=== PATIENT | male | born 1960 | race Caucasian/White ===

== ENCOUNTER 2016-10-20 20:20 | Emergency (ER) | payer OTHER ==
[~2016-10-20] VITALS: Ht 177.8 cm; Wt 95.3 kg
[~2016-10-20 20:20] MED LIST: AMOXIL 875 MG875 MG PO; AMOXIL500 MG PO; ANUSOL HC-HEMOR1 SUP RC; CLARITIN-D 24 H1 T24 PO; IBUPROFEN800 M1 PO; PERCOCET 325 MG1 TA2 PO; PREDNISONE 20MG20 MG PO; ROBITUSSIN AC SY5 ML PO; TESSALON PERLE100 MG PO; ZITHROMAX Z-PA250 M1 PO
--- NOTE | 2016-10-20 21:25 | ED DYSPNEA/ASTHMA COMPLAINT ---
History of Present Illness General Chief Complaint: Dyspnea (COPD, CHF, Other) Stated Complaint: DIFF BREATHING PER PT Source: patient Exam Limitations: no limitations Vital Signs & Intake/Output Vital Signs & Intake/Output Vital Signs Date Time Temp Pulse Resp B/P Pulse O2 O2 Flow FiO2 Ox Delivery Rate 10/20 2246 97.5 80 18 115/64 96 Room Air Room Air 10/20 2150 96 10/21 2023 97.8 87 20 110/62 95 Room Air ED Intake and Output 10/21 0000 10/20 1200 Intake Total Output Total Balance Patient 210 lb Weight Allergies Coded Allergies: morphine (Severe, HIVES 03/14/16) Reconcile Medications Albuterol Sulfate (Ventolin Hfa) 90 MCG HFA.AER.AD 2 PUF INH Q4-6 PRN PRN WHEEZING Albuterol Sulfate 1.25 MG/3 ML VIAL.NEB 1 Vial INH/HUSSAIN Q4-6 PRN WHEEZING Azithromycin (Zithromax) 500 MG TABLET 1 TAB PO DAILY BRONCHITIS Benzonatate (Tessalon Perle) 100 MG CAPSULE 1 CAP PO TID PRN COUGH Canagliflozin (Invokana) 100 MG TABLET 1 TAB PO DAILY DM (Reported) Ezetimibe (Zetia) 10 MG TABLET 1 TAB PO DAILY CHOLESTEROL (Reported) Lisinopril 20 MG TABLET 1 TAB PO DAILY BP (Reported) Metformin HCl 500 MG TABLET 1 TAB PO BID DM (Reported) Multivitamin (Multi-Day Vitamins) 1 EACH TABLET 1 TAB PO DAILY SUPPLEMENT ( Reported) Pravastatin Sodium 80 MG TABLET 1 TAB PO DAILY CHOLESTEROL (Reported) Prednisone 10 MG TABLET 1 TAB PO AD INFLAMMATION DAY1/DAY2 FOUR TABS DAY3/DAY4 THREE TABS DAY5/DAY6 TWO TABS DAY 7 ONE TAB Sitagliptin Phosphate (Januvia) 100 MG TABLET 1 TAB PO DAILY DM (Reported) Tadalafil (Cialis) 20 MG TABLET 1 TAB PO AD PRN ED (Reported) Triage Note: INCREASING SOB 2-3 DAYS COUGH CONGESTION REPORTS HX OF RECURRENT BRONCHITIS AND PNE Triage Nurses Notes Reviewed? yes Onset: Gradual Duration: getting worse Timing: recent history Severity: moderate HPI: Patient is a 56-year-old male with a past medical history of CAD with bypass, hypertension and diabetes in which he is an every day smoker who states that for the past 4-5 days he's been complaining of gradual onset of wheezing shortness of breath productive yellow cough nasal congestion and not feeling well. Positive sick contacts at home. Patient has been using his inhaler nebulizer treatment and rescue inhaler with mild relief of symptoms. Denies any chest pain hemoptysis leg swelling arm pain jaw pain (CUONG KWON) Past History Travel History Traveled to [place] past 21 day No Medical History Any Pertinent Medical History? 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 No (CUONG KWON) Review of Systems Review of Systems Constitutional: Reports: see HPI. EENTM: Reports: see HPI, nasal congestion. Respiratory: Reports: see HPI, cough, short of breath, wheezing. Cardiovascular: Reports: no symptoms. GI: Reports: no symptoms. Genitourinary: Reports: no symptoms. Musculoskeletal: Reports: no symptoms. Skin: Reports: no symptoms. Neurological/Psychological: Reports: no symptoms. Hematologic/Endocrine: Reports: no symptoms. Immunologic/Allergic: Reports: no symptoms. All Other Systems: Reviewed and Negative (CUONG KWON) Physical Exam Physical Exam General Appearance: no apparent distress, alert Respiratory: no respiratory distress, wheezing Comments: Well-developed well-nourished person in no acute distress HEENT: Normal EENT exam, extraocular motion intact, no nystagmus. Pupils equally round and reactive to light and accommodation. Nose is atraumatic. External auditory canal and Tympanic membranes clear. Pharynx normal. No swelling or edema. nasal congestion. Neck: Supple, no lymphadenopathy, normal range of motion without pain or tenderness Back: Nontender, no CVA tenderness. Cardiovascular: Regular rate and rhythms no murmurs rubs or gallops, normal JVP Respiratory: Chest nontender. No respiratory distress, bilateral posterior auscultation of wheezing noted Abdomen: Soft, nontender nondistended, no appreciable organomegaly. Normal bowel sounds. No ascites Extremity: No edema, no calf tenderness to palpation, normal and equal pulses. Neuro: Alert oriented x3, motor sensory normal, Skin: No appreciable rash on exposed skin, skin is warm and dry. Psych: Mood and affect is normal, memory and judgment is normal. Core Measures ACS in differential dx? Yes Severe Sepsis Present: No Septic Shock Present: No (CUONG KWON) Progress Differential Diagnosis: asthma, AMI, bronchitis, costochondritis, CHF, COPD, musculoskeletal pain, pericarditis, pulmonary embolism, pneumonia, pneumothorax, rib fracture, unstable angina Plan of Care: Orders Procedure Date/time Status XRY-CHEST XRAY, PA AND LATERAL 10/20 2130 Active Patient currently is in no respiratory distress 10/20/2016 10:39:26 PM patient had significant resolution of wheezing noted on exam after nebulizer. 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 Patient had 97% room air oxygenation on discharge (CUONG KWON) Initial ED EKG: none (CUONG KWON) Departure Departure Disposition: HOME OR SELF CARE Condition: Stable Clinical Impression Primary Impression: Bronchitis Secondary Impressions: COPD (chronic obstructive pulmonary disease) Referrals: TRISHA ALSTON,MARY Beyer (PCP/Family) Additional Instructions: As discussed if no better in 3 days follow-up with your primary care doctor. Please discontinue smoking. Begin the prescription of albuterol inhaler and albuterol vials for your nebulizer for future wheezing. Begin the prescription Tessalon Perles for cough, azithromycin for the full course and prednisone tomorrow as YOU HAVE received prednisone in the emergency today. If symptoms worsen return to emergency room. Prescription is awaiting at [facility] Departure Forms: Customer Survey General Discharge Information Prescriptions: Current Visit Scripts Albuterol Sulfate (Ventolin Hfa) 2 PUF INH Q4-6 PRN PRN WHEEZING #1 INHAL Albuterol Sulfate 1 Vial INH/HUSSAIN Q4-6 PRN WHEEZING #150 ML Prednisone 1 TAB PO AD #19 TAB DAY1/DAY2 FOUR TABS DAY3/DAY4 THREE TABS DAY5/DAY6 TWO TABS DAY 7 ONE TAB Benzonatate (Tessalon Perle) 1 CAP PO TID PRN COUGH #21 CAP Azithromycin (Zithromax) 1 TAB PO DAILY #5 TAB (CUONG KWON) PA/SURGICAL SCRUB TECHNICIAN Co-Sign Statement Statement: ED Attending supervision documentation- [] I saw and evaluated the patient. I have also reviewed all the pertinent lab results and diagnostic results. I agree with the findings and the plan of care as documented in the PA's/SURGICAL SCRUB TECHNICIAN's documentation. [X] I have reviewed the ED Record and agree with the PA's/SURGICAL SCRUB TECHNICIAN's documentation. [] Additions or exceptions (if any) to the PAs/SURGICAL SCRUB TECHNICIAN's note and plan are summarized below: [] (RADHA ALSTON,PADMINI) Critical Care Note Critical Care Note Critical Care Time: non-applicable (CUONG KWON)
[2016-10-20] MEDS ORDERED: LISINOPRIL20 M1 PO (22:20)
[2016-10-20] MEDS ORDERED: METFORMIN HCL500 M3 PO (22:20)
[2016-10-20] MEDS ORDERED: INVOKANA100 M1 PO (22:20)
[2016-10-20] MEDS ORDERED: PRAVASTATIN SOD80 M2 PO (22:21)
[2016-10-20] MEDS ORDERED: ZETIA10 M1 PO (22:21)
[2016-10-20] MEDS ORDERED: CIALIS20 M1 PO (22:21)
[2016-10-20] MEDS ORDERED: JANUVIA100 M1 PO (22:21)
[2016-10-20] MEDS ORDERED: MULTI-DAY VITA1 EACH PO (22:22)
[2016-10-20] MEDS ORDERED: VENTOLIN HFA18 GM INH (22:33)
[2016-10-20] MEDS ORDERED: ALBUTEROL1.25 MG/1 INH/SOL (22:33)
[2016-10-20] MEDS ORDERED: ZITHROMAX500 M2 PO (22:33)
[2016-10-20] MEDS ORDERED: PREDNISONE10 M2 PO (22:33)
[2016-10-20] MEDS ORDERED: TESSALON PERLE100 M1 PO (22:33)
[2016-10-20 22:46] VITALS: BP 115/64
== END 2016-10-20 22:47 ==
LOC: ERH 20:20
DX: J44.9 Chronic obstructive pulmonary disease, unspecified (principal); F17.210 Nicotine dependence, cigarettes, uncomplicated
CPT/HCPCS: 1263

== ENCOUNTER 2016-12-21 17:55 | Emergency (ER) | payer OTHER ==
[~2016-12-21] VITALS: Ht 177.8 cm; Wt 93.0 kg
[~2016-12-21 17:55] MED LIST changes: +ALBUTEROL1.25 MG/1 INH/SOL; +CIALIS20 M1 PO; +INVOKANA100 M1 PO; +JANUVIA100 M1 PO; +LISINOPRIL20 M1 PO; +METFORMIN HCL500 M3 PO; +MULTI-DAY VITA1 EACH PO; +PRAVASTATIN SOD80 M2 PO; +PREDNISONE10 M2 PO; +TESSALON PERLE100 M1 PO; +VENTOLIN HFA18 GM INH; +ZETIA10 M1 PO; +ZITHROMAX500 M2 PO
[2016-12-21 18:02] VITALS: BP 122/78
[2016-12-21] MEDS ORDERED: ZITHROMAX250 M2 PO ×2 (18:16→19:09)
[2016-12-21] MEDS ORDERED: NASONEX17 GM NASB ×2 (18:16→19:09)
[2016-12-21] MEDS ORDERED: DELTASONE20 MG PO ×2 (18:16→19:09)
--- NOTE | 2016-12-21 18:16 | ED INFLUENZA/URI COMPLAINT ---
History of Present Illness General Chief Complaint: Upper Respiratory Sx/Fever Stated Complaint: SINUS PROBLEM Source: patient Exam Limitations: no limitations Vital Signs & Intake/Output Vital Signs & Intake/Output Vital Signs Date Time Temp Pulse Resp B/P B/P Pulse O2 O2 Flow FiO2 Mean Ox Delivery Rate 12/21 1811 98 Room Air 12/21 180 98.3 114 18 122/78 95 Room Air Allergies Coded Allergies: morphine (Severe, HIVES 03/14/16) Reconcile Medications Albuterol Sulfate (Ventolin Hfa) 90 MCG HFA.AER.AD 2 PUF INH Q4-6 PRN PRN WHEEZING Albuterol Sulfate 1.25 MG/3 ML VIAL.NEB 1 Vial INH/HUSSAIN Q4-6 PRN WHEEZING Azithromycin (Zithromax) 250 MG TABLET 1 DP PO AD BRONCHITIS 2 the first day followed by 1 for days 2-5 Azithromycin (Zithromax) 250 MG TABLET 1 DP PO AD BRONCHITIS 2 the first day followed by 1 for days 2-5 Azithromycin (Zithromax) 500 MG TABLET 1 TAB PO DAILY BRONCHITIS Benzonatate (Tessalon Perle) 100 MG CAPSULE 1 CAP PO TID PRN COUGH Canagliflozin (Invokana) 100 MG TABLET 1 TAB PO DAILY DM (Reported) Ezetimibe (Zetia) 10 MG TABLET 1 TAB PO DAILY CHOLESTEROL (Reported) Lisinopril 20 MG TABLET 1 TAB PO DAILY BP (Reported) Metformin HCl 500 MG TABLET 1 TAB PO BID DM (Reported) Mometasone Furoate (Nasonex) 50 MCG SPRAY.PUMP 2 SPRAY NASB DAILY CONGESTION Mometasone Furoate (Nasonex) 50 MCG SPRAY.PUMP 2 SPRAY NASB DAILY NASAL CONGESTION Multivitamin (Multi-Day Vitamins) 1 EACH TABLET 1 TAB PO DAILY SUPPLEMENT ( Reported) Pravastatin Sodium 80 MG TABLET 1 TAB PO DAILY CHOLESTEROL (Reported) Prednisone (Deltasone) 20 MG TABLET 1 TAB PO TID ASTHM Prednisone (Deltasone) 20 MG TABLET 1 TAB PO TID ASTHMA Prednisone 10 MG TABLET 1 TAB PO AD INFLAMMATION DAY1/DAY2 FOUR TABS DAY3/DAY4 THREE TABS DAY5/DAY6 TWO TABS DAY 7 ONE TAB Sitagliptin Phosphate (Januvia) 100 MG TABLET 1 TAB PO DAILY DM (Reported) Tadalafil (Cialis) 20 MG TABLET 1 TAB PO AD PRN ED (Reported) Triage Note: PT TO TRIAGE WITH C/O CONGESTION, COUGH PRODUCTIVE OF CLEAR SPUTUM, SOB, HEADACHE x3DAYS.PT DENIES CHEST PAIN. AFEBRILE IN TRIAGE. VSS. Triage Nurses Notes Reviewed? yes Onset: Abrupt Duration: day(s):, constant, continues in ED Timing: recent history Severity: moderate, severe No Modifying Factors: none HPI: 56-year-old male comes into emergency room for further evaluation of nasal congestion, sinus pressure, cough, mucus production, wheezing. Patient reports symptoms of a going on for past few days and have moved from his head into his chest. Denies any chest pain. Nothing seems to make the symptoms better or worse. Denies any other associated symptoms. (STACEY MUSE) Past History Travel History Traveled to [place] past 21 day No Medical History Any Pertinent Medical History? 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 No (STACEY MUSE) Review of Systems Review of Systems Constitutional: Reports: see HPI. EENTM: Reports: see HPI. Respiratory: Reports: see HPI. Cardiovascular: Reports: no symptoms. GI: Reports: no symptoms. Genitourinary: Reports: no symptoms. Musculoskeletal: Reports: no symptoms. Skin: Reports: no symptoms. Neurological/Psychological: Reports: no symptoms. Hematologic/Endocrine: Reports: no symptoms. Immunologic/Allergic: Reports: no symptoms. All Other Systems: Reviewed and Negative (STACEY MUSE) Physical Exam Physical Exam General Appearance: well developed/nourished, no apparent distress, alert, awake Head: atraumatic, normal appearance Eyes: Bilateral: normal appearance, EOMI. Ears, Nose, Throat: normal ENT inspection, moist mucous membrane, hearing grossly normal Neck: normal inspection, full range of motion Respiratory: decreased breath sounds, rhonchi, wheezing Cardiovascular: regular rate/rhythm Back: normal inspection Extremities: normal inspection, normal capillary refill, no edema Neurologic/Psych: awake, alert, oriented x 3 Skin: intact, normal color Core Measures Severe Sepsis Present: No Septic Shock Present: No (STACEY MUSE) Progress Differential Diagnosis: influenza, meningitis, neutropenia, otitis, pneumonia, pharyngitis, sinusitis, bronchitis, Plan of Care: Current Medications Sig/Gerard Start time Last Medication Dose Stop Time Status Admin Albuterol Sulfate 3 ML ONCE ONE 12/21 1814 UNVr (Proventil) 12/22 1815 Ipratropium [place] 2.5 ML ONCE ONE 12/21 1814 UNVr (Atrovent) 12/22 1815 Prednisone 60 MG ONCE ONE 12/21 1814 UNVr 12/22 1815 Initial ED EKG: none Comments: 12/21/2016 7:49:36 PM Patient feels better after nebulizer treatment. Patient treated for bronchitis/ sinusitis. Follow-up with primary care doctor. Return if any concerns worsening symptoms. (STACEY MUSE) Departure Departure Disposition: HOME OR SELF CARE Condition: Stable Clinical Impression Primary Impression: Sinusitis Secondary Impressions: Bronchitis Referrals: TRISHA ALSTON,MARY Beyer (PCP/Family) Additional Instructions: Take prednisone, Z-Chad, and Nasonex as prescribed. Use your albuterol machine at home every 4-6 hours. Return if any other concerns. Please go over all results of today's visit with your primary care doctor. Contact your primary care doctor to let them know you were here in the emergency room. There may be nonspecific findings which may not be related to your visit today here in the emergency room but may require further evaluation and chronic monitoring by your primary care doctor. If you had a laceration today the chance of foreign body always remains. You should follow-up with your primary care doctor for recheck in 3-5 days for a wound check. If you had an x-ray done there is a chance that a fracture could have been missed on initial read and you should follow-up with your primary care doctor for repeat x-rays if symptoms persist. If your blood pressure was elevated here in the emergency room please have rechecked by her primary care doctor within the next 48 hours by your primary care doctor. If you were prescribed a narcotic here in the emergency room or any type of controlled substances you're not allowed to drive while taking this medication or operate any type of heavy machinery. Narcotics can make you feel lightheaded dizziness nausea and can cause constipation. You may need to picker/puller a stool softener. Thank you for choosing [facility] emergency room. Please return to the emergency room immediately if you have any other concerns worsening of symptoms. Departure Forms: Customer Survey General Discharge Information Prescriptions: Current Visit Scripts Prednisone (Deltasone) 1 TAB PO TID #12 MG Azithromycin (Zithromax) 1 DP PO AD #6 TAB 2 the first day followed by 1 for days 2-5 Mometasone Furoate (Nasonex) 2 SPRAY NASB DAILY #1 INHAL Azithromycin (Zithromax) 1 DP PO AD #6 TAB 2 the first day followed by 1 for days 2-5 Prednisone (Deltasone) 1 TAB PO TID #12 MG Mometasone Furoate (Nasonex) 2 SPRAY NASB DAILY #1 INHAL (STACEY MUSE) PA/CARBONATION EQUIPMENT TENDER Co-Sign Statement Statement: ED Attending supervision documentation- [] I saw and evaluated the patient. I have also reviewed all the pertinent lab results and diagnostic results. I agree with the findings and the plan of care as documented in the PA's/CARBONATION EQUIPMENT TENDER's documentation. [X] I have reviewed the ED Record and agree with the PA's/CARBONATION EQUIPMENT TENDER's documentation. [] Additions or exceptions (if any) to the PAs/CARBONATION EQUIPMENT TENDER's note and plan are summarized below: [] (KENNEDY ALSTON,LALO [place])
== END 2016-12-21 18:52 ==
LOC: ERH 17:55
DX: J32.9 Chronic sinusitis, unspecified (principal); J40 Bronchitis, not specified as acute or chronic; Z72.0 Tobacco use
CPT/HCPCS: 1263

== ENCOUNTER 2017-01-11 20:34 | Emergency (ER) | payer OTHER ==
[~2017-01-11] VITALS: Ht 177.8 cm; Wt 95.3 kg
[~2017-01-11 20:34] MED LIST changes: +DELTASONE20 MG PO; +NASONEX17 GM NASB; +ZITHROMAX250 M2 PO
--- NOTE | 2017-01-11 20:59 | ED GI/GU/ABDOMINAL COMPLAINT ---
History of Present Illness General Chief Complaint: Abdominal Pain/Flank Pain Stated Complaint: RIGHT UPPER ABD PAIN Source: patient, old records Exam Limitations: no limitations Vital Signs & Intake/Output Vital Signs & Intake/Output Vital Signs Date Time Temp Pulse Resp B/P B/P Pulse O2 O2 Flow FiO2 Mean Ox Delivery Rate 01/11 2256 98.2 80 16 148/80 98 Room Air Room Air 01/11 2104 97.4 110 19 156/91 95 Room Air Allergies Coded Allergies: morphine (Severe, HIVES 03/14/16) Reconcile Medications Albuterol Sulfate (Ventolin Hfa) 90 MCG HFA.AER.AD 2 PUF INH Q4-6 PRN PRN WHEEZING Albuterol Sulfate 1.25 MG/3 ML VIAL.NEB 1 Vial INH/HUSSAIN Q4-6 PRN WHEEZING Azithromycin (Zithromax) 250 MG TABLET 1 DP PO AD BRONCHITIS 2 the first day followed by 1 for days 2-5 Azithromycin (Zithromax) 250 MG TABLET 1 DP PO AD BRONCHITIS 2 the first day followed by 1 for days 2-5 Azithromycin (Zithromax) 500 MG TABLET 1 TAB PO DAILY BRONCHITIS Benzonatate (Tessalon Perle) 100 MG CAPSULE 1 CAP PO TID PRN COUGH Canagliflozin (Invokana) 100 MG TABLET 1 TAB PO DAILY DM (Reported) Ezetimibe (Zetia) 10 MG TABLET 1 TAB PO DAILY CHOLESTEROL (Reported) Lisinopril 20 MG TABLET 1 TAB PO DAILY BP (Reported) Metformin HCl 500 MG TABLET 1 TAB PO BID DM (Reported) Mometasone Furoate (Nasonex) 50 MCG SPRAY.PUMP 2 SPRAY NASB DAILY CONGESTION Mometasone Furoate (Nasonex) 50 MCG SPRAY.PUMP 2 SPRAY NASB DAILY NASAL CONGESTION Multivitamin (Multi-Day Vitamins) 1 EACH TABLET 1 TAB PO DAILY SUPPLEMENT ( Reported) Oxycodone HCl/Acetaminophen (Percocet 5-325 MG Tablet) 5 MG-325 MG TABLET 1 TAB PO BID PRN PAIN Pravastatin Sodium 80 MG TABLET 1 TAB PO DAILY CHOLESTEROL (Reported) Prednisone (Deltasone) 20 MG TABLET 1 TAB PO TID ASTHM Prednisone (Deltasone) 20 MG TABLET 1 TAB PO TID ASTHMA Prednisone 10 MG TABLET 1 TAB PO AD INFLAMMATION DAY1/DAY2 FOUR TABS DAY3/DAY4 THREE TABS DAY5/DAY6 TWO TABS DAY 7 ONE TAB Sitagliptin Phosphate (Januvia) 100 MG TABLET 1 TAB PO DAILY DM (Reported) Tadalafil (Cialis) 20 MG TABLET 1 TAB PO AD PRN ED (Reported) Triage Nurses Notes Reviewed? yes Onset: Abrupt Duration: hour(s): (2), constant Timing: recent history Quality/Severity: aching, moderate, sharpness Severity Numbers: 8 Location: right upper quadrant Radiation: RLQ Activities at Onset: none Prior Abdominal Problems: none No Modifying Factors: none Associated Symptoms: denies HPI: 56-year-old male with history of diabetes hypertension peripheral vascular disease presents to ER for evaluation of a right upper quadrant abdominal pain rating to the right lower quadrant for the past 2 hours. He denies any known specific injury trauma however states she was outside doing yard work today cutting down trees. Pain does not radiate to his back or chest. He denies any nausea vomiting diarrhea. Has not taken anything for his pain constant sharp aching. No fever no chills. No modifying factors or associated symptoms otherwise. The patient does report to having a few beers this evening prior to the pain beginning no left-sided abdominal pain. No urinary symptoms no pain with inspiration, no cough dysnpea or hemoptysis (CUONG AVILA) Past History Travel History Traveled to [place] past 21 day No Medical History Any Pertinent Medical History? 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 No (CUONG AVILA) Review of Systems Review of Systems Constitutional: Reports: see HPI. All Other Systems: Reviewed and Negative Comments Review of systems: See HPI, All other systems negative. Constitutional, no chills no fever, no malaise HEENT: No visual changes no sore throat no congestion, Cardiovascular: No chest pain , no palpitation Skin: no rashes, no change in skin Respiratory: No dyspnea no cough no sputum GI: No nausea no vomiting, no diarrhea, no bloating/constipation : No dysuria No hematuria, no frequency, no discharge Muscle skeletal: No joint pain, no joint swelling, no back pain, no neck pain, Neurologic: No numbness no headache Psych: No stress Heme/endocrine: No bruising Immunology: No lymphadenopathy (CUONG AVILA) Physical Exam Physical Exam General Appearance: well developed/nourished, no apparent distress Gastrointestinal: soft, tenderness Comments: Well-developed well-nourished person in no acute distress HEENT: Normal EENT exam; PERRL, EOMI, no nystagmus. HEAD is atraumatic. moist mucous membranes. Neck: Supple,, normal range of motion Back: Nontender, no CVA tenderness. Full range of motion Cardiovascular: Regular rate and rhythms no murmurs rubs Respiratory: Chest nontender.There were no bony deformities, no asymmetry. No respiratory distress. Patient speaking in full complete sentences. Breath sounds clear to auscultation bilaterally: NO W/R/R Abdomen: Soft, right upper quadrant tender to palpation nondistended no palpable hernia, no appreciable organomegaly. Normal bowel sounds. No rebound/guarding, No appreciable enlargement of the abdominal aorta, No ascites. Negative Leon sign Extremity: No edema, full range of motion of extremities, Neuro: Alert oriented x3, motor sensory normal,. There were no obvious focal neurologic abnormalities. Skin: No appreciable rash on exposed skin, skin is warm and dry.No jaundice Psych: Mood and affect is normal, memory and judgment is normal. Core Measures ACS in differential dx? Yes Severe Sepsis Present: No Septic Shock Present: No (CUONG AVILA) Progress Differential Diagnosis: AAA, appendicitis, biliary colic, bowel obstruction, colon cancer, cholecystitis, gastritis, hepatitis, hernia, inflamm bowel dis Plan of Care: Orders Procedure Date/time Status TROPONIN LEVEL 01/11 2049 Complete LIPASE 01/11 2049 Complete HEPATIC FUNCTION PANEL 01/11 2049 Complete CBC WITHOUT DIFFERENTIAL 01/11 2049 Complete BASIC METABOLIC PANEL 01/11 2049 Complete AMYLASE 01/11 2049 Complete EKG 01/11 2049 Active Laboratory Tests 01/11/172118: Anion Gap 11, Estimated GFR > 60, BUN/Creatinine Ratio 21.4, Glucose 113 H, Calcium 9.6, Total Bilirubin 0.5, Direct Bilirubin 0.2, AST 34, ALT 60, Alkaline Phosphatase 70, Troponin I 0.02, Total Protein 7.2, Albumin 4.4, Amylase 80, Lipase 173, CBC w Diff NO MAN DIFF REQ, RBC 5.35, MCV 94.2 H, MCH 32.1 H, RDW 13.4, MPV 8.0, Gran % 57.4, Lymphocytes % 27.9, Monocytes % 7.2, Eosinophils % 7.1 H, Basophils % 0.4, Absolute Granulocytes 4.3, Absolute Lymphocytes 2.1, Absolute Monocytes 0.5, Absolute Eosinophils 0.5, Absolute Basophils 0, PUBS MCHC 34.1 Labs ordered over. Patient medicated with Dilaudid 1 mg IV IV fluids Pepcid 20 IV Repeat evaluation patient reports to feeling improved discussed with him his lab results pending CAT scan 01/11/2017 10:49:43 PM discussed the patient at length all of his results CAT scan findings Abdomen is soft nontender on repeat eval. patient denies any pain at this time symptoms could be consistent with muscle strain given he was lifting a tree branches earlier today. I had an extensive conversation regarding need for close follow up with their primary care physician this week as well as return precautions. I answered all of their questions, they feel comfortable with the plan and follow-up care. I discussed with the patient/family the medications that they will receive. I gave them signs and symptoms that could indicate an adverse reaction. I have advised them to limit their activities until they can see how they respond to the medication. (VOLODYMYR BRODY,CUONG) Diagnostic Imaging: Viewed by Me: CT Scan. Discussed w/RAD: CT Scan. Radiology Impression: PATIENT: ARTEM RILEY PRESENT AGE: 56 PATIENT ACCOUNT NO: [id number] : 60 LOCATION: [facility] ORDERING PHYSICIAN: CUONG BRODY SERVICE DATE: 01/11/17 EXAM TYPE: CAT - CT ABD & PELVIS W IV CONTRAST EXAMINATION: CT ABDOMEN AND PELVIS WITH CONTRAST CLINICAL INFORMATION: Right upper quadrant abdominal pain COMPARISON: 08/11/2013 CT scan TECHNIQUE: Multidetector volumetric imaging was performed of the abdomen and pelvis before and after the IV administration of 94 mL of Optiray 320 intravenous contrast. Sagittal and coronal reformatted images were obtained on the technologist's workstation. DLP: 809.61 mGy-cm FINDINGS: LUNG BASES: Moderate bilateral dependent atelectatic changes noted at the lung bases. No pleural effusion. LIVER, GALLBLADDER, AND BILIARY TREE: The liver is mildly enlarged, measures about 17.2 cm in CC diameter. Mild diffuse decreased hepatic parenchymal density can represent changes of hepatic steatosis. No focal hepatic lesions or intrahepatic biliary ductal dilatation seen. The portal vein opacifies homogeneously. The gallbladder is unremarkable with no evidence of radiopaque gallstones, gallbladder wall thickening, or obvious pericholecystic inflammatory changes. PANCREAS: Unremarkable. SPLEEN: Unremarkable. ADRENAL GLANDS: Unremarkable. KIDNEYS AND URETERS: The kidneys are normal in size, shape , and attenuation. No hydronephrosis, hydroureter, or calculi seen. No perinephric stranding. BLADDER: The urinary bladder is partially full and unremarkable. GASTROINTESTINAL TRACT: The stomach, duodenum, small and large bowel are unremarkable. The appendix is visualized and without CT evidence of acute appendicitis. ABDOMINAL WALL: Changes of the anterior abdominal wall hernia repair at the level of umbilicus noted. LYMPH NODES: Normal. VASCULAR: Atherosclerotic calcifications of the abdominal aorta and iliac arteries seen. No aneurysmal dilatation. PELVIC VISCERA: The prostate and seminal vesicles are unremarkable. OSSEOUS STRUCTURES: Mild vacuum disc phenomenon and posterior disc osteophyte complex noted at L4-L5 and L5-S1 level. IMPRESSION: Mild hepatomegaly and hepatic steatosis. No CT evidence of acute appendicitis or acute cholecystitis. Bilateral dependent atelectasis. DICTATED BY: JA CERNA MD DATE/TIME DICTATED:01/11/172224 DIRECT MARKETING INTERN:ZOEY DATE/TIME TRANSCRIBED:01/11/172224 CONFIDENTIAL, DO NOT COPY WITHOUT APPROPRIATE AUTHORIZATION. <Electronically signed in Other Vendor System> SIGNED BY: JA CERNA MD 01/11/172236 Initial ED EKG: stach [address] seg changes, normal axis Prior EKG: unchanged (07/14/15) (VOLODYMYR BRODY,CUONG) Departure Departure Time of Disposition: 2246 Disposition: HOME OR SELF CARE Condition: Stable Clinical Impression Primary Impression: Abdominal pain Referrals: TRISHA ALSTON,MARY Beyer (PCP/Family) Additional Instructions: Follow-up with your primary care physician this week. Rest no heavy lifting Percocet for pain return to ER anytime sooner with any concerns. Departure Forms: Customer Survey General Discharge Information Prescriptions: Current Visit Scripts Oxycodone HCl/Acetaminophen (Percocet 5-325 MG Tablet) 1 TAB PO BID PRN PAIN #10 TAB (CUONG AVILA) PA/BATCH FREEZER OPERATOR Co-Sign Statement Statement: ED Attending supervision documentation- [] I saw and evaluated the patient. I have also reviewed all the pertinent lab results and diagnostic results. I agree with the findings and the plan of care as documented in the PA's/BATCH FREEZER OPERATOR's documentation. [x] I have reviewed the ED Record and agree with the PA's/BATCH FREEZER OPERATOR's documentation. [] Additions or exceptions (if any) to the PAs/BATCH FREEZER OPERATOR's note and plan are summarized below: [] (JENNIFER ALSTON,ARACELI Mcdonald)
[2017-01-11 21:31] LABS: ABSOLUTE BASOPHIL COUNT 0 /CUMM (0.0-0.2); ABSOLUTE EOSINOPHIL COUNT 0.5 /CUMM (0.0-0.7); ABSOLUTE GRANULOCYTE CT 4.3 /CUMM (1.4-6.5); ABSOLUTE LYMPH COUNT 2.1 /CUMM (1.2-3.4); ABSOLUTE MONOCYTE COUNT 0.5 /CUMM (0.10-0.60); BASOPHIL % 0.4 % (0.0-2.0); EOSINOPHIL % 7.1 % (0-5); GRANULOCYTE % 57.4 % (42.2-75.2); HEMATOCRIT 50.4 % (42-52); MEAN CORPUSCULAR HGB 32.1 PG (27.0-31.0); MEAN CORPUSCULAR HGB CONC 34.1 G/DL (33.0-37.0); MEAN CORPUSCULAR VOLUME 94.2 FL (80.0-94.0); PLATELET COUNT 147 /CUMM (130-400); RBC DISTRIBUTION WIDTH 13.4 % (11.5-14.5); RED BLOOD CELL CT 5.35 /CUMM (4.70-6.10); WHITE BLOOD CELL COUNT 7.5 /CUMM (4.8-10.8)
--- NOTE | 2017-01-11 22:37 | CT SCAN REPORT ---
EXAMINATION: CT ABDOMEN AND PELVIS WITH CONTRAST CLINICAL INFORMATION: Right upper quadrant abdominal pain COMPARISON: 08/11/2013 CT scan TECHNIQUE: Multidetector volumetric imaging was performed of the abdomen and pelvis before and after the IV administration of 94 mL of Optiray 320 intravenous contrast. Sagittal and coronal reformatted images were obtained on the technologist's workstation. DLP: 809.61 mGy-cm FINDINGS: LUNG BASES: Moderate bilateral dependent atelectatic changes noted at the lung bases. No pleural effusion. LIVER, GALLBLADDER, AND BILIARY TREE: The liver is mildly enlarged, measures about 17.2 cm in CC diameter. Mild diffuse decreased hepatic parenchymal density can represent changes of hepatic steatosis. No focal hepatic lesions or intrahepatic biliary ductal dilatation seen. The portal vein opacifies homogeneously. The gallbladder is unremarkable with no evidence of radiopaque gallstones, gallbladder wall thickening, or obvious pericholecystic inflammatory changes. PANCREAS: Unremarkable. SPLEEN: Unremarkable. ADRENAL GLANDS: Unremarkable. KIDNEYS AND URETERS: The kidneys are normal in size, shape, and attenuation. No hydronephrosis, hydroureter, or calculi seen. No perinephric stranding. BLADDER: The urinary bladder is partially full and unremarkable. GASTROINTESTINAL TRACT: The stomach, duodenum, small and large bowel are unremarkable. The appendix is visualized and without CT evidence of acute appendicitis. ABDOMINAL WALL: Changes of the anterior abdominal wall hernia repair at the level of umbilicus noted. LYMPH NODES: Normal. VASCULAR: Atherosclerotic calcifications of the abdominal aorta and iliac arteries seen. No aneurysmal dilatation. PELVIC VISCERA: The prostate and seminal vesicles are unremarkable. OSSEOUS STRUCTURES: Mild vacuum disc phenomenon and posterior disc osteophyte complex noted at L4-L5 and L5-S1 level. IMPRESSION: Mild hepatomegaly and hepatic steatosis. No CT evidence of acute appendicitis or acute cholecystitis. Bilateral dependent atelectasis.
[2017-01-11] MEDS ORDERED: PERCOCET 5-3251 EACH PO (22:48)
[2017-01-11 22:56] VITALS: BP 148/80
== END 2017-01-11 22:57 ==
LOC: ERH 20:34
PROVIDERS: Pediatrics
DX: R10.11 Right upper quadrant pain (principal)
CPT/HCPCS: 74177; 93005; 93010; 96374; 96375

== ENCOUNTER 2017-10-07 11:00 | Observation (INO) | payer OTHER ==
[~2017-10-07] VITALS: Ht 177.8 cm; Wt 102.1 kg
[~2017-10-07 11:00] MED LIST changes: +CYCLOBENZAPRINE10 M1 PO; +DAILY VITE1 EACH PO; +MOBIC15 M1 PO; -MULTI-DAY VITA1 EACH PO; +PERCOCET 5-3251 EACH PO
[2017-10-07] MEDS ORDERED: ATORVASTATIN CA10 M1 PO (12:05)
[2017-10-07] MEDS ORDERED: AZELASTINE137 MCG/0. NASB (12:06)
[2017-10-07 12:27] LABS: ABSOLUTE BASOPHIL COUNT 0 /CUMM (0.0-0.2); ABSOLUTE EOSINOPHIL COUNT 0.5 /CUMM (0.0-0.7); ABSOLUTE GRANULOCYTE CT 6.5 /CUMM (1.4-6.5); ABSOLUTE LYMPH COUNT 1.4 /CUMM (1.2-3.4); ABSOLUTE MONOCYTE COUNT 0.6 /CUMM (0.10-0.60); BASOPHIL % 0.5 % (0.0-2.0); GRANULOCYTE % 71.7 % (42.2-75.2); HEMATOCRIT 49.3 % (42-52); MEAN CORPUSCULAR VOLUME 94.3 FL (80.0-94.0); MEAN PLATELET VOLUME 8.6 FL (7.4-10.4); PLATELET COUNT 151 /CUMM (130-400); RBC DISTRIBUTION WIDTH 13.4 % (11.5-14.5); RED BLOOD CELL CT 5.23 /CUMM (4.70-6.10); WHITE BLOOD CELL COUNT 9.1 /CUMM (4.8-10.8)
--- NOTE | 2017-10-07 12:51 | ED SYNCOPE COMPLAINT ---
History of Present Illness General Chief Complaint: Syncope and Near-Syncope Stated Complaint: SYNCOPAL EPISODE LAST NIGHT, LT KNEE/LT ANKLE PAIN Source: patient, friend (GIRL FRIEND ) Exam Limitations: no limitations Vital Signs & Intake/Output Vital Signs & Intake/Output Vital Signs Date Time Temp Pulse Resp B/P B/P Pulse O2 O2 Flow FiO2 Mean Ox Delivery Rate 10/08 0922 83 160/90 10/08 0806 170/100 10/08 0730 152/70 10/08 0711 98.3 90 20 182/104 93 Room Air 10/08 0600 98.3 90 20 182/104 10/08 0518 95 182/104 10/08 0000 Nasal 2.0L Cannula 10/08 0000 98.4 84 20 160/86 10/07 2219 98.4 84 20 160/86 95 10/07 2021 92 Room Air 10/07 1934 97.8 82 16 158/80 92 10/07 1835 97.5 82 19 171/90 95 Room Air 10/07 1448 98.4 86 18 175/86 95 Room Air 10/07 1324 97.7 87 18 168/84 95 Room Air 10/07 1123 96.6 98 18 161/87 97 Room Air Room Air ED Intake and Output 10/08 0000 10/07 1200 Intake Total 400 Output Total Balance 400 Intake, IV 150 Intake, Oral 250 Number 0 Bowel Movements Patient 225 lb 225 lb Weight Weight Reported by Patient Measurement Method Allergies Coded Allergies: morphine (Severe, HIVES 03/14/16) Reconcile Medications Albuterol Sulfate (Ventolin Hfa) 90 MCG HFA.AER.AD 2 PUF INH Q4-6 PRN PRN WHEEZING Albuterol Sulfate 1.25 MG/3 ML VIAL.NEB 1 Vial INH/HUSSAIN Q4-6 PRN WHEEZING Atorvastatin Calcium 10 MG TABLET 1 TAB PO DAILY CHOLESTROL (Reported) Azelastine HCl 137 MCG (0.1 %) SPRAY.PUMP 2 SPRAY NASB BID NASAL CONGESTION ( Reported) Lisinopril 20 MG TABLET 1 TAB PO DAILY BP (Reported) Metformin HCl 500 MG TABLET 1 TAB PO BID DM (Reported) Mometasone Furoate (Nasonex) 50 MCG SPRAY.PUMP 2 SPRAY NASB DAILY NASAL CONGESTION Triage Note: PT TO ED "I PASSED OUT LAST NIGHT, I WENT TO GET A PIECE OF PIZZA AND I WOKE UP ON THE FLOOR, THE EMT'S CAME SAID EVERYTHING WAS OK, SO I DIDN'T GO TO THE HOSP", TODAY C/O LEFT KNEE AND ANKLE PAIN. PER PT SCHEDULED FOR SINUS SURGERY IN A MONTH "ALWAYS HAVE HEAD PAIN". Triage Nurses Notes Reviewed? yes Timing: single episode today Precipitating Factors: none Episode Description: Started coughing blacked out and woke up on the ground Loss of Consciousness: brief (seconds) Associated Symptoms: headache, LEFT KNEE PAIN LEFT ANKLE PAIN HPI: 57-year-old male past medical history of obesity, peripheral vascular disease, hypertension presents for evaluation of a syncopal episode. Patient states that last night he had been drinking alcohol and he was walking to get something from the refrigerator. He suddenly started coughing and the next thing he knew he woke up on the ground. The episode was witnessed by several other people who say that he fell onto his left side and that he was out for several seconds. He was able to stand up on his own. EMS was initially called to scene patient refused transport. He states when he woke up today he had pain in his left knee and left ankle so he was coming in for further evaluation. Denies any chest pain shortness of breath dizziness or lightheadedness B4 the episode. He's never had anything like this. He denies any history of alcohol withdrawal seizures. No drug use. He states he drinks about 4 times a week. He had a echocardiogram stress test and arterial ultrasound done within the past 2 months which according the patient were negative. He does report associated headache he is unsure if he hit his head. No blood thinners. (Saurabh Qureshi) Past History Travel History Traveled to [place] past 21 day No Medical History Any Pertinent Medical History? 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 No (Saurabh Qureshi) Review of Systems Review of Systems Constitutional: Reports: no symptoms. EENTM: Reports: no symptoms. Respiratory: Reports: no symptoms. Cardiovascular: Reports: no symptoms. GI: Reports: no symptoms. Genitourinary: Reports: no symptoms. Musculoskeletal: Reports: back pain, joint pain, joint swelling, muscle pain, muscle stiffness. Skin: Reports: no symptoms. Neurological/Psychological: Reports: headache. All Other Systems: Reviewed and Negative (Saurabh Qureshi) Physical Exam Physical Exam General Appearance: well developed/nourished, no apparent distress, alert, awake , obese Head: atraumatic, normal appearance Eyes: Bilateral: normal appearance, PERRL, EOMI. Ears, Nose, Throat: normal pharynx, normal ENT inspection, hearing grossly normal Neck: normal inspection, supple, full range of motion, no midline tenderness Respiratory: normal breath sounds, chest non-tender, no respiratory distress, lungs clear Cardiovascular: regular rate/rhythm, normal peripheral pulses Gastrointestinal: normal bowel sounds, soft, non-tender, no organomegaly, MULTIPLE HEALED SURGICAL SCARS WITH INCISIONAL HERNIAS. uMBILICAL HERNIA PRESENT. nO ERYTHEMA BRUISING OR TENDERNESS TO PALPATION Back: normal inspection, normal range of motion, no vertebral tenderness Extremities: normal capillary refill, no edema, THERE IS MILD DIFFUSE SWELLING OF THE LEFT KNEE. tHERE IS PAIN TO PALPATION OF THE MEDIAL AND LATERAL ASPECTS OF THE LEFT KNEE JOINT. nO ERYTHEMA OR BRUISING. fULL RANGE OF MOTION OF THE KNEE IS INTACT WITH PAIN. nO CALF SWELLING OR TENDERNESS. nEUROVASCULAR SUPPLY INTACT BILATERALLY. tHERE IS PAIN TO PALPATION OF THE LATERAL ASPECT OF THE LLEFT ANKLE. nO FIFTH METATARSAL TENDERNESS. nO BRUISING. mILD SWELLING AROUND THE LATERAL MALLEOLUS. Psychiatric: awake, alert, oriented x 3 Cranial Nerves: normal hearing, normal speech, PERRL Coordination/Gait: normal finger to nose Motor/Sensory: no motor/sensory deficits Skin: intact, normal color, warm/dry Core Measures ACS in differential dx? No CVA/TIA Diagnosis: No Sepsis Present: No Sepsis Focused Exam Completed? No (Saurabh Qureshi) Progress Differential Diagnosis: AMI, aortic dissection, aortic valve, drug induced syncope, orthostatic syncope, subarachnoid hem. Plan of Care: Orders Procedure Date/time Status Consistent Carbohydrate 2 10/08 B Active CBC WITHOUT DIFFERENTIAL 10/08 599 Complete BASIC ELECTROLYTES PLUS BUN&CR 10/08 599 Complete PHARMACY COMMUNICATION FORM 10/08 UNK Active Regular Diet 10/07 D Complete Teach/Educate 10/07 194 Active Pain Treatment and Response 10/07 194 Active Nutritional Intake, Monitor 10/07 1947 Active Isolation 10/07 1947 Active Patient Care Conference 10/07 1947 Active Activity/Ambulation 10/07 194 Active TROPONIN LEVEL 10/07 1900 Complete Pathway - chart 10/07 1814 Active House Staff 10/07 1814 Active Patient Data 10/07 1814 Active Code Status 10/07 1814 Active Patient Data 10/07 1706 Active Patient Data 10/[address] in observation 10/07 1603 Active ED Holding Orders 10/07 1603 Active Vital Signs 10/07 1603 Active Code Status 10/07 1603 Complete Add-on Test (ER Only) 10/07 1452 Active EKG 10/07 1435 Active Add-on Test (ER Only) 10/07 1229 Active LIPASE 10/07 1215 Complete ETHANOL 10/07 1215 Complete Intake & Output 10/07 1157 Active URINALYSIS 10/07 1154 Complete TROPONIN LEVEL 10/07 1154 Complete COMPREHENSIVE METABOLIC PANEL 10/07 1154 Complete CBC WITHOUT DIFFERENTIAL 10/07 1154 Complete EKG 10/07 1154 Active VTE Mechanical Prophylaxis 10/07 UNK Active MISTAKE 10/07 UNK Active Telemetry/Edge Kitter 10/07 UNK Active FingerStick- Glucose 10/07 UNK Active CIWA 10/07 UNK Complete CIWA 10/07 UNK Active EKG 10/07 UNK Active Current Medications Sig/Gerard Start time Last Medication Dose Stop Time Status Admin Enoxaparin Sodium 40 MG DAILY 10/08 1000 AC 10/08 (Lovenox) 0920 Lisinopril 20 MG DAILY 10/08 1000 AC 10/08 (Prinivil) 0518 Insulin Aspart 0 TIDAC 10/08 0800 AC 10/08 (NovoLOG) 0811 Sodium Chloride 2 SPRAY Q4P PRN 10/07 2300 AC (Nasal) Acetaminophen 500 MG Q6P PRN 10/07 1999 AC (Tylenol) Acetaminophen 650 MG Q4P PRN 10/07 1945 AC 10/07 (Tylenol) 2015 Albuterol Sulfate 2 PUF Q4-6 PRN PRN 10/07 1830 AC (Ventolin) Albuterol Sulfate 3 ML Q4H PRN 10/07 1830 AC (Proventil) Atorvastatin Calcium 10 MG DAILY 10/07 1826 AC 10/08 (Lipitor) 0920 Nicotine 21 MG DAILY 10/07 1712 AC 10/07 (Nicoderm) 1727 Laboratory Tests 10/08/17 0610: Anion Gap 12, Estimated GFR > 60, BUN/Creatinine Ratio 18.6, CBC w Diff NO MAN DIFF REQ, RBC 4.95, MCV 95.4 H, MCH 31.9 H, MCHC 33.4, RDW 14.2, MPV 9.7, Gran % 69.3, Lymphocytes % 17.7 L, Monocytes % 7.0, Eosinophils % 5.5 H, Basophils % 0.5, Absolute Granulocytes 4.9, Absolute Lymphocytes 1.2, Absolute Monocytes 0.5, Absolute Eosinophils 0.4, Absolute Basophils 0 10/07/17 1910: Troponin I < 0.01 10/07/17 1315: Urine Color YEL, Urine Clarity CLEAR, Urine pH 6.5, Ur Specific [place] 1.020, Urine Protein 30 H, Urine Ketones NEG, Urine Nitrite NEG, Urine Bilirubin NEG, Urine Urobilinogen 1.0, Ur Leukocyte Esterase NEG, Ur Microscopic SEDIMENT EXAMINED, Urine RBC RARE, Urine WBC RARE, Ur Epithelial Cells RARE, Urine Bacteria RARE H, Micro UA Comment MORE INFO: H, Urine Hemoglobin NEG, Urine Glucose NEG 10/07/17 1215: Anion Gap 10, Estimated GFR > 60, BUN/Creatinine Ratio 17.1, Glucose 187 H, Calcium 9.7, Total Bilirubin 0.5, AST 23, ALT 36, Alkaline Phosphatase 74, Troponin I 0.01, Total Protein 6.5, Albumin 3.9, Globulin 2.6, Albumin/Globulin Ratio 1.5, Lipase 121, CBC w Diff NO MAN DIFF REQ, RBC 5.23, MCV 94.3 H, MCH 32.0 H, MCHC 34.0, RDW 13.4, MPV 8.6, Gran % 71.7, Lymphocytes % 15.7 L, Monocytes % 7.1, Eosinophils % 5.0, Basophils % 0.5, Absolute Granulocytes 6.5, Absolute Lymphocytes 1.4, Absolute Monocytes 0.6, Absolute Eosinophils 0.5, Absolute Basophils 0, Serum Alcohol < 10.0 Patient seen and evaluated. He had a syncopal episode last night. He states that the only presyncopal symptom he had was coughing. There is no dizziness or lightheadedness. No blurred vision. He did report hitting his head reports headache along with pain in his knee and ankle on the left side. He has no tenderness of his ribs or spine. Patient will get x-rays of the left knee and left ankle and a CT scan of the head and cervical spine. Additionally will check basic blood work and EKGs. Records of patient's recent cardiac workup were obtained including echocardiogram stress test and peripheral arterial ultrasound. See chart for attached reports. All blood work is within normal limits. CT scan of the head and neck is negative. X-rays of the knee and ankle are negative for fracture. Patient feels it is difficult for him to walk due to pain. Patient suddenly started reporting pain in his right upper quadrant and right flank. He states the pain was severe 10 out of 10. He states he has had this before intermittently and will last for several minutes. Patient has significant tenderness in the right upper quadrant. A stat EKG chest x-ray and CT scan were ordered. Patient was medicated with 2 mg of IM Dilaudid. Symptoms resolved after several minutes and gone away completely. The CT scan of the abdomen and pelvis is negative for any acute findings. Chest x-ray is clear. On reevaluation he does have very mild right upper quadrant tenderness. No pain to palpation of the ribs there is no bruising swelling or abrasions in that area. Patient will be admitted to the hospital for observation after a syncopal episode. Case discussed with Dr. Rivero she agrees. Diagnostic Imaging: Viewed by Me: Radiology Read, CT Scan. Discussed w/RAD: Radiology Read, CT Scan. Radiology Impression: PATIENT: ARTEM RILEY PRESENT AGE: 57 PATIENT ACCOUNT NO: [id number] : 60 LOCATION: [facility] ORDERING PHYSICIAN: Saurabh BRODY SERVICE DATE: 10/07/17 EXAM TYPE: CAT - CT CERV SPINE WO IV CONTRAST; CT HEAD WO IV CONTRAST EXAMINATION: CT HEAD WITHOUT CONTRAST CT CERVICAL SPINE WITHOUT CONTRAST CLINICAL INFORMATION: Syncope with head strike. COMPARISON: None. TECHNIQUE: Contiguous axial imaging was performed from the skull base to vertex without intravenous administration of contrast. In addition, helical noncontrast CT imaging was acquired through the cervical spine and source images were reviewed along with axial reconstructions and sagittal and coronal MPRs. DLP: 983 mGy-cm FINDINGS: HEAD: No intracranial mass, hemorrhage, or midline shift is visualized. The ventricles and sulci are age-appropriate. Minor hypoattenuation along the frontal horns, nonspecific. No extra-axial collections are identified. The paranasal sinuses are well aerated. The mastoid air cells and middle ear cavities are clear. The temporomandibular joints articulate normally. CERVICAL SPINE: There is no evidence of acute cervical spine fracture. Vertebral body height is maintained. Sagittal alignment is maintained. There is no prevertebral soft tissue swelling. There is mild multilevel intervertebral disc height loss with endplate sclerosis and spurring most notable at C3-C4 and C5-C6. The lateral masses of C1 and C2 articulate normally. At C3-C4 there is a central disc protrusion which results in mild canal stenosis. There is mild right greater than left foraminal stenosis. At C5-C6 there is right greater than left disc osteophyte complex mildly flattening the canal and mildly narrowing both foramina. No adenopathy. No discrete thyroid lesions. Incidental tonsilliths in the palatine tonsils. The lung apices are clear. IMPRESSION: 1. No acute intracranial pathology. 2. No CT evidence of acute cervical spine fracture or traumatic subluxation DICTATED BY: Kieran Estrada MD DATE/TIME DICTATED:10/07/171320 [employer] DATE/TIME TRANSCRIBED:10/07/171320 CONFIDENTIAL, DO NOT COPY WITHOUT APPROPRIATE AUTHORIZATION., PATIENT: ARTEM RILEY PRESENT AGE: 57 PATIENT ACCOUNT NO: [id number] : 60 LOCATION: [facility] ORDERING PHYSICIAN: Saurabh BRODY SERVICE DATE: 10/07/17 EXAM TYPE: RAD - XRY-ANKLE 3 OR MORE VIEWS L; XRY-KNEE COMPLETE LEFT EXAMINATION: XRY-KNEE COMPLETE LEFT, XRY-ANKLE 3 OR MORE VIEWS L CLINICAL INFORMATION: Trauma. Pain. COMPARISON: X-rays of left ankle on 03/14/2016. TECHNIQUE: 3 views of left ankle and 4 views of the left knee FINDINGS: Left ankle: There is no evidence of fracture, subluxation, or joint effusion. Ankle mortise is intact. Since the last exam, there has been development of ossification of the interosseous ligament the distal left leg. Marginal spurs are present as before. Left knee: The bones and joints are normal. There is no evidence of fracture, dislocation, or joint effusion. Arterial vascular calcifications are seen in the proximal left leg. Soft tissues are normal. IMPRESSION: No acute fractures. Mild degenerative changes of the left ankle joint. DICTATED BY: Jarocho Jones MD DATE/TIME DICTATED:10/07/171342 [employer] DATE/TIME TRANSCRIBED:10/07/171342 CONFIDENTIAL, DO NOT COPY WITHOUT APPROPRIATE AUTHORIZATION., PATIENT: ARTEM RILEY PRESENT AGE: 57 PATIENT ACCOUNT NO: [id number] : 60 LOCATION: [facility] ORDERING PHYSICIAN: Saurabh BRODY SERVICE DATE: 10/07/17 EXAM TYPE: CAT - CT ABD & PELVIS W /O IV CONTRAS EXAMINATION: CT ABDOMEN AND PELVIS WITHOUT CONTRAST CLINICAL INFORMATION: Acute onset of right upper quadrant pain and distention. COMPARISON : 01/11/2017 TECHNIQUE: Multidetector volumetric imaging was performed from the superior aspect of the liver through the pubic symphysis. Sagittal and coronal reformatted images were obtained on the technologist's workstation. DLP: 795 mGy -cm FINDINGS: LUNG BASES: There are dependent changes in the lung bases. The imaged heart and pericardium appear unremarkable. LIVER, GALLBLADDER, AND BILIARY TREE: The liver is low in attenuation without discrete hepatic lesion. No ductal dilatation. The gallbladder is unremarkable with no evidence of radiopaque gallstones, gallbladder wall thickening, or obvious pericholecystic inflammatory changes. PANCREAS: Unremarkable. SPLEEN: Unremarkable. ADRENAL GLANDS: Unremarkable. KIDNEYS AND URETERS: The kidneys are normal in size, shape , and attenuation. No hydronephrosis, hydroureter, or calculi seen. Mild, stable perinephric stranding. BLADDER: Under distended. GASTROINTESTINAL TRACT: The large bowel are unremarkable with a few colonic diverticula are identified. The appendix is unremarkable. Loops of small bowel demonstrate mild caliber change from proximal to distal, but remain within normal limits without surrounding stranding or evidence of wall thickening; the appearance is similar to the prior. ABDOMINAL WALL: There is diastases of the rectus musculature, and some suture material along the anterior abdominal wall compatible with prior surgery. There is a fat-containing periumbilical hernia, unchanged without associated stranding. LYMPH NODES: No adenopathy. VASCULAR: Moderate calcification of the aorta and iliac arteries. There is a left common iliac stent, unchanged. PELVIC VISCERA: Unremarkable. OSSEOUS STRUCTURES: No acute osseous abnormalities. There are 5 nonrib-bearing lumbar type vertebral bodies. There is no spondylolysis. There is mild degenerative change at L5-S1 most notably. IMPRESSION: No acute intra-abdominal or intrapelvic pathology. Low attenuation liver compatible with hepatic steatosis. Stable postsurgical changes along the anterior abdominal wall with a small fat-containing periumbilical hernia. DICTATED BY: Kieran Estrada MD DATE/TIME DICTATED:10/07/171521 [employer] DATE/TIME TRANSCRIBED:10/07/171521 CONFIDENTIAL, DO NOT COPY WITHOUT APPROPRIATE AUTHORIZATION. <Electronically signed in Other Vendor System> SIGNED BY: Kieran Estrada MD 10/07/17 153 CXR Impression: PATIENT: ARTEM RILEY PRESENT AGE: 57 PATIENT ACCOUNT NO: [id number] : 60 LOCATION: [facility] ORDERING PHYSICIAN: Saurabh BRODY SERVICE DATE: 10/07/17 EXAM TYPE: RAD - XRY-PORTABLE CHEST XRAY EXAMINATION: CHEST 1 VIEW CLINICAL INFORMATION: Chest pain. Shortness of breath. COMPARISON: 10/16/2015. TECHNIQUE: An AP view of the chest is provided. FINDINGS: The cardiac silhouette is stable. The mediastinal and hilar contours are unremarkable. There are neither pleural effusions nor pneumothoraces. There are no consolidations. The osseous structures are unremarkable. IMPRESSION: No evidence for acute disease. DICTATED BY: Jeremy Perry MD DATE/TIME DICTATED:10/07/171512 [employer] DATE/TIME TRANSCRIBED:10/07/171512 CONFIDENTIAL, DO NOT COPY WITHOUT APPROPRIATE AUTHORIZATION. <Electronically signed in Other Vendor System> SIGNED BY: Jeremy Perry MD 10/07/171517 Pre-Hospital EKG: no ST T wave changes Initial ED EKG: normal sinus rhythm, PROBABLE OLD INFERIOR INFARCT (Ever BRODY,Saurabh) Departure Departure Disposition: STILL A PATIENT Condition: Stable Clinical Impression Primary Impression: Syncope Qualifiers: Syncope type: unspecified Qualified Code: R55 - Syncope and collapse Referrals: Ronnie ALSTON,Juve [place] (PCP/Family) Departure Forms: Customer Survey General Discharge Information Observation Note Spoke With: Georgina ALSTON,Darshan Physician Advisor Notified: MIRA ALSTON,MAIKEL [facility] Patient In: Non-ED OBS Care Area Rationale for Observation: My rational for observation is as follows [serial labs, serial EKGs, cardiology consult, telemetry, monitoring of vital signs, physical therapy]. (Ever BRODY,Saurabh) PA/HYDRAULIC CHAIR ASSEMBLER Co-Sign Statement Statement: ED Attending supervision documentation- [X] I saw and evaluated the patient. I have also reviewed all the pertinent lab results and diagnostic results. I agree with the findings and the plan of care as documented in the PA's/HYDRAULIC CHAIR ASSEMBLER's documentation. [X] I have reviewed the ED Record and agree with the PA's/HYDRAULIC CHAIR ASSEMBLER's documentation. [] Additions or exceptions (if any) to the PAs/HYDRAULIC CHAIR ASSEMBLER's note and plan are summarized below: [] PATIENT WITH SYNCOPAL EPISODE, ABNORMAL STRESS TEST PER OUTPATIENT RESULTS OBTAINED. WILL STAY ON TELE FOR 23 HR OBSERVATION, WILL OBTAIN IN HOUSE CARDIOLOGY EVALUATION. (Mat ALSTON,Mariana)
--- NOTE | 2017-10-07 13:30 | CT SCAN REPORT ---
EXAMINATION: CT HEAD WITHOUT CONTRAST CT CERVICAL SPINE WITHOUT CONTRAST CLINICAL INFORMATION: Syncope with head strike. COMPARISON: None. TECHNIQUE: Contiguous axial imaging was performed from the skull base to vertex without intravenous administration of contrast. In addition, helical noncontrast CT imaging was acquired through the cervical spine and source images were reviewed along with axial reconstructions and sagittal and coronal MPRs. DLP: 983 mGy-cm FINDINGS: HEAD: No intracranial mass, hemorrhage, or midline shift is visualized. The ventricles and sulci are age-appropriate. Minor hypoattenuation along the frontal horns, nonspecific. No extra-axial collections are identified. The paranasal sinuses are well aerated. The mastoid air cells and middle ear cavities are clear. The temporomandibular joints articulate normally. CERVICAL SPINE: There is no evidence of acute cervical spine fracture. Vertebral body height is maintained. Sagittal alignment is maintained. There is no prevertebral soft tissue swelling. There is mild multilevel intervertebral disc height loss with endplate sclerosis and spurring most notable at C3-C4 and C5-C6. The lateral masses of C1 and C2 articulate normally. At C3-C4 there is a central disc protrusion which results in mild canal stenosis. There is mild right greater than left foraminal stenosis. At C5-C6 there is right greater than left disc osteophyte complex mildly flattening the canal and mildly narrowing both foramina. No adenopathy. No discrete thyroid lesions. Incidental tonsilliths in the palatine tonsils. The lung apices are clear. IMPRESSION: 1. No acute intracranial pathology. 2. No CT evidence of acute cervical spine fracture or traumatic subluxation
--- NOTE | 2017-10-07 13:52 | RADIOLOGY REPORT ---
EXAMINATION: XRY-KNEE COMPLETE LEFT, XRY-ANKLE 3 OR MORE VIEWS L CLINICAL INFORMATION: Trauma. Pain. COMPARISON: X-rays of left ankle on 03/14/2016. TECHNIQUE: 3 views of left ankle and 4 views of the left knee FINDINGS: Left ankle: There is no evidence of fracture, subluxation, or joint effusion. Ankle mortise is intact. Since the last exam, there has been development of ossification of the interosseous ligament the distal left leg. Marginal spurs are present as before. Left knee: The bones and joints are normal. There is no evidence of fracture, dislocation, or joint effusion. Arterial vascular calcifications are seen in the proximal left leg. Soft tissues are normal. IMPRESSION: No acute fractures. Mild degenerative changes of the left ankle joint.
--- NOTE | 2017-10-07 15:18 | RADIOLOGY REPORT ---
EXAMINATION: CHEST 1 VIEW CLINICAL INFORMATION: Chest pain. Shortness of breath. COMPARISON: 10/16/2015. TECHNIQUE: An AP view of the chest is provided. FINDINGS: The cardiac silhouette is stable. The mediastinal and hilar contours are unremarkable. There are neither pleural effusions nor pneumothoraces. There are no consolidations. The osseous structures are unremarkable. IMPRESSION: No evidence for acute disease.
--- NOTE | 2017-10-07 15:35 | CT SCAN REPORT ---
EXAMINATION: CT ABDOMEN AND PELVIS WITHOUT CONTRAST CLINICAL INFORMATION: Acute onset of right upper quadrant pain and distention. COMPARISON: 01/11/2017 TECHNIQUE: Multidetector volumetric imaging was performed from the superior aspect of the liver through the pubic symphysis. Sagittal and coronal reformatted images were obtained on the technologist's workstation. DLP: 795 mGy-cm FINDINGS: LUNG BASES: There are dependent changes in the lung bases. The imaged heart and pericardium appear unremarkable. LIVER, GALLBLADDER, AND BILIARY TREE: The liver is low in attenuation without discrete hepatic lesion. No ductal dilatation. The gallbladder is unremarkable with no evidence of radiopaque gallstones, gallbladder wall thickening, or obvious pericholecystic inflammatory changes. PANCREAS: Unremarkable. SPLEEN: Unremarkable. ADRENAL GLANDS: Unremarkable. KIDNEYS AND URETERS: The kidneys are normal in size, shape, and attenuation. No hydronephrosis, hydroureter, or calculi seen. Mild, stable perinephric stranding. BLADDER: Under distended. GASTROINTESTINAL TRACT: The large bowel are unremarkable with a few colonic diverticula are identified. The appendix is unremarkable. Loops of small bowel demonstrate mild caliber change from proximal to distal, but remain within normal limits without surrounding stranding or evidence of wall thickening; the appearance is similar to the prior. ABDOMINAL WALL: There is diastases of the rectus musculature, and some suture material along the anterior abdominal wall compatible with prior surgery. There is a fat-containing periumbilical hernia, unchanged without associated stranding. LYMPH NODES: No adenopathy. VASCULAR: Moderate calcification of the aorta and iliac arteries. There is a left common iliac stent, unchanged. PELVIC VISCERA: Unremarkable. OSSEOUS STRUCTURES: No acute osseous abnormalities. There are 5 nonrib-bearing lumbar type vertebral bodies. There is no spondylolysis. There is mild degenerative change at L5-S1 most notably. IMPRESSION: No acute intra-abdominal or intrapelvic pathology. Low attenuation liver compatible with hepatic steatosis. Stable postsurgical changes along the anterior abdominal wall with a small fat-containing periumbilical hernia.
--- NOTE | 2017-10-07 17:02 | PN- Att Addend ---
Attending Addendum Attending Brief Note Patient seen and examined. Plan of care discussed with the medical team and the patient. Available lab work and radiology test reports were reviewed. 57-year-old male past medical history of obesity, peripheral vascular disease, status post aortofemoral bypass, hypertension presents for evaluation of a syncopal episode. Patient states that last night he had been drinking alcohol and he was walking to get something from the refrigerator. He suddenly started coughing and the next thing he knew he woke up on the ground. The episode was witnessed by several other people who say that he fell onto his left side and that he was out for several seconds. He was able to stand up on his own. EMS was initially called to scene patient refused to go hospital. Patient does not report any chest pain dizziness palpitation sweating and nausea vomiting or any diarrhea or abdominal pain. He usually drinks 4-6 times per day. Vital Signs Date Time Temp Pulse Resp B/P B/P Pulse O2 O2 Flow FiO2 Mean Ox Delivery Rate 10/07 1448 98.4 86 18 175/86 95 Room Air 10/07 1324 97.7 87 18 168/84 95 Room Air 10/07 1123 96.6 98 18 161/87 97 Room Air Room Air Intake & Output 10/07 1600 10/07 0800 10/07 0000 Intake Total Output Total Balance Patient 225 lb Weight Weight Reported by Patient Measurement Method Exam: General: Patient awake alert oriented without any distress; appears slightly dazed CVS: S1 plus S2 without any murmur or gallops Chest: Few scattered crepitation without any wheeze. There is no respiratory distress. Abdomen: Soft non-tender, bowel sound present, no guarding or rebound; large midline scar of prior surgery OPTICAL LENS MANUFACTURING TECH: Awake alert oriented without any focal neuro deficit and follows commands appropriately; no tremor noted Extremities: No edema; no clubbing or cyanosis noted Laboratory Tests 10/07/17 1315: Urine Color YEL, Urine Clarity CLEAR, Urine pH 6.5, Ur Specific [place] 1.020, Urine Protein 30 H, Urine Ketones NEG, Urine Nitrite NEG, Urine Bilirubin NEG, Urine Urobilinogen 1.0, Ur Leukocyte Esterase NEG, Ur Microscopic SEDIMENT EXAMINED, Urine RBC RARE, Urine WBC RARE, Ur Epithelial Cells RARE, Urine Bacteria RARE H, Micro UA Comment MORE INFO: H, Urine Hemoglobin NEG, Urine Glucose NEG 02/28/18 1215: Anion Gap 10, Estimated GFR > 60, BUN/Creatinine Ratio 17.1, Glucose 187 H, Calcium 9.7, Total Bilirubin 0.5, AST 23, ALT 36, Alkaline Phosphatase 74, Troponin I 0.01, Total Protein 6.5, Albumin 3.9, Globulin 2.6, Albumin/Globulin Ratio 1.5, Lipase 121, CBC w Diff NO MAN DIFF REQ, RBC 5.23, MCV 94.3 H, MCH 32.0 H, MCHC 34.0, RDW 13.4, MPV 8.6, Gran % 71.7, Lymphocytes % 15.7 L, Monocytes % 7.1, Eosinophils % 5.0, Basophils % 0.5, Absolute Granulocytes 6.5, Absolute Lymphocytes 1.4, Absolute Monocytes 0.6, Absolute Eosinophils 0.5, Absolute Basophils 0, Serum Alcohol < 10.0 CT head and cervical spine 1. No acute intracranial pathology. 2. No CT evidence of acute cervical spine fracture or traumatic subluxation Chest x-ray- no acute disease noted Knee and ankle x-rays No acute fractures. Mild degenerative changes of the left ankle joint. CT abdomen and pelvis No acute intra-abdominal or intrapelvic pathology. Low attenuation liver compatible with hepatic steatosis. Stable postsurgical changes along the anterior abdominal wall with a small fat-containing periumbilical hernia. Assessment * Syncope likely vasovagal * Alcohol abuse * Impending alcohol withdrawal * Alcoholic steatosis * Rule out NM, rule out any arrhythmia * Hypertension Plan * Observe in telemetry * Cardiology evaluation * Check 2 sets of troponin * Repeat EKG in a.m. * [facility] protocol; watch for withdrawal * Check orthostatic BP
--- NOTE | 2017-10-07 17:03 | History & Physical ---
uJstina Contreras MD 10/07/17 1702: General Information and [facility] MD Statement: I have seen and personally examined ARTEM RILEY and documented this H&P. The patient is a 57 year old M who presented with a patient stated chief complaint of [syncope]. Source of Information: patient, old records Exam Limitations: no limitations History of Present Illness: 57-year-old male with past medical history of HTN, DM on Metformin, obesity, PVD S/P aortofemoral bypass, recurrent sinusitis, sinus cyst presents to the ED the for evaluation of syncope As per the patient he was in his usual state of health until last night when he was with his friends and was drinking and he was walking to do something from the fridge when he suddenly blacked out. The patient doesn't remember the incidents but he denies any palpitation, chest pain, nausea, vomiting, weakness or numbness before or after the episode. He also denies urinary or fecal incontinence or biting his tongue. The syncope was witnessed and his friends didn't notice any seizure while he was unconscious. It lasted a few seconds after which the patient regained his consciousness and was not confused. Patient reports hurting his left knee and ankle when he fell down however he denies any head injury. Patient currently reports pain in his left knee and ankle in addition to the chronic pain he has due to peripheral vascular disease. The patient denies any history of similar episodes, he only reports frequent headache due to sinusitis and cyst for which she is going to get surgery on Patient was recently evaluated by a special machine stitcher at [facility], he had an echo on 07/26 which showed ejection fraction [id number] He also had nuclear stress test which showed inferior wall motion abnormality which was nonreversible. Patient lives home and is independent in his daily activities, he smoked one pack of cigarettes daily for 10 years, he also drinks 4 beers and 2 shots daily his last drink was yesterday Denies recreational drug use ED course: Vital signs: Her blood pressure 161/87, pulse 98, RR 18, temperature 96.6, pulse ox 97 on room air Labs: Stable H&H, platelets 151, sodium 139, potassium 3.8, BUN 12, creatinine 0.7, glucose 187, troponin 0.01, lipase 121, serum alcohol less than 10, urine analysis showed only mild fat droplets Allergies/Medications Allergies: Coded Allergies: morphine (Severe, HIVES 03/14/16) Home Med list Albuterol Sulfate (Ventolin Hfa) 90 MCG HFA.AER.AD 2 PUF INH Q4-6 PRN PRN WHEEZING Albuterol Sulfate 1.25 MG/3 ML VIAL.NEB 1 Vial INH/HUSSAIN Q4-6 PRN WHEEZING Atorvastatin Calcium 10 MG TABLET 1 TAB PO DAILY CHOLESTROL (Reported) Azelastine HCl 137 MCG (0.1 %) SPRAY.PUMP 2 SPRAY NASB BID NASAL CONGESTION ( Reported) Lisinopril 20 MG TABLET 1 TAB PO DAILY BP (Reported) Metformin HCl 500 MG TABLET 1 TAB PO BID DM (Reported) Mometasone Furoate (Nasonex) 50 MCG SPRAY.PUMP 2 SPRAY NASB DAILY NASAL CONGESTION Past History Travel History Traveled to [place] past 21 day No Medical History Neurological: NONE EENT: NONE Cardiovascular: hypertension, BYPASS 2003 L ARTERY BLOCKAGE Respiratory: NONE Gastrointestinal: NONE Hepatic: NONE Renal: NONE Musculoskeletal: NONE Psychiatric: NONE Endocrine: diabetes Blood Disorders: NONE Cancer(s): NONE POLITICAL RESEARCH SCIENTIST/Reproductive: NONE Surgical History Surgical History: aortofemoral bypass, Past Family/Social History Family History Relations & Conditions if any FATHER Relation not specified for: FHx: lung cancer Psychosocial History Services at Home: None ETOH Use: heavy use Illicit Drug Use: denies illicit drug use Review of Systems Review of Systems Constitutional: Denies: no symptoms. EENTM: Denies: no symptoms. Cardiovascular: Denies: no symptoms. Respiratory: Denies: no symptoms. Musculoskeletal: Reports: joint pain, muscle pain. Skin: Denies: no symptoms. Exam & Diagnostic Data Last 24 Hrs of Vital Signs/I&O Vital Signs Date Time Temp Pulse Resp B/P B/P Pulse O2 O2 Flow FiO2 Mean Ox Delivery Rate 10/07 1934 97.8 82 16 158/80 92 10/07 1835 97.5 82 19 171/90 95 Room Air 10/07 1448 98.4 86 18 175/86 95 Room Air 10/07 1324 97.7 87 18 168/84 95 Room Air 10/07 1123 96.6 98 18 161/87 97 Room Air Room Air Intake & Output 10/07 1600 10/07 0800 10/07 0000 Intake Total Output Total Balance Patient 225 lb Weight Weight Reported by Patient Measurement Method Physical Exam General Appearance Alert, Oriented X3, Cooperative, No Acute Distress HEENT Atraumatic, PERRLA, EOMI, Mucous Membr. moist/pink Cardiovascular Normal S1, Normal S2, No Murmurs Lungs Clear to Auscultation Abdomen Normal Bowel Sounds, Soft, No Tenderness Neurological Normal Speech, Strength at 5/5 X4 Ext, Normal Tone, Sensation Intact Extremities No Clubbing, No Cyanosis, No Edema, left knee is more swollen and tender Vascular Normal Pulses Assessment/Plan Assessment: 57-year-old male with past medical history of HTN, DM on Metformin, obesity, PVD S/P aortofemoral bypass, recurrent sinusitis, sinus cyst presents to the ED the for evaluation of syncope As per the patient he was in his usual state of health until last night when he was with his friends and was drinking and he was walking to do something from the fridge when he suddenly blacked out. The patient doesn't remember the incidents but he denies any palpitation, chest pain, nausea, vomiting, weakness or numbness before or after the episode. He also denies urinary or fecal incontinence or biting his tongue Problem list: Syncope (vasovagal versus cardiac) Type 2 diabetes Alcohol use Plan: Observe on telemetry floor Cardiology consult appreciated Vitals every shift Serial troponin and EKG to rule out ACS I's and O's Orthostatic vital signs Gentle IV hydration with 1 L normal saline Hold Metformin Insulin sliding scale Fingerstick glucose CIWA monitoring for alcohol withdrawal Patient is full code Consistent carbohydrate diet DVT prophylaxis with Alps and subcutaneous heparin As Ranked By This Provider Problem List: 1. Syncope Qualifiers Syncope type: unspecified Qualified Code: R55 - Syncope and collapse Core Measures/Misc (04/26) Acute Coronary Syndrome ACS Diagnosis: No Congestive Heart Failure Congestive Heart Failure Diagnosis No Cerebrovascular Accident CVA/TIA Diagnosis: No VTE (View Protocol) VTE Risk Factors Age>40 No Mechanical VTE Prophylaxis d/t N/A MechProphylax Ordered No VTE Pharm Prophylaxis d/t NA PharmProphylax ordered Sepsis (View protocol) Sepsis Present: No Yusuf Rose MD 10/07/17 1916: Observation Initial Note - I have personally examined ARTEM RILEY on 10/07/17 at 2039. The disposition of ARTEM RILEY is uncertain at this time and before a determination can be made, he requires a period of observation for the following reasons [syncope] Resident Review Statement Resident Statement: examined this patient, discussed with intern retail, agreed with intern retail Other Findings: Patient is a 57-year-old male with past medical history of diabetes, hypertension, obesity, peripheral vascular disease status post aortofemoral bypass, recurrent sinusitis/sinus cyst will undergo surgery in November 2017 presenting with evaluation of witnessed fall. According to the patient he was drinking alcohol in night(4 beers/3 shots), and afterwards that he wanted to get something from the refrigerator, he felt sudden blackout for a couple of second followed by fall. He got up by himself. He injured his left leg. He did not think that he needed to come to the hospital so he did not. In the morning he was having pain in his left leg, so he came to the hospital for further evaluation. He denies for any headache, dizziness, nausea, vomiting, fever, chest pain, palpitation, tongue bite, incontinence of the stool in the urine. Denies any previous episode of fall. Of note he has history of headache, secondary to sinus cyst which she is going to get operated in November 2017. Of note he was evaluated by his special machine stitcher at [facility], he had nuclear stress test which showed inferior wall motion abnormality which was nonreversible. He has history of aortofemoral bypass in 2003. He still get the pain in his left leg. Personal history-he does smoke and drink alcohol ED course -vital signs temperature 96.6, pulse 98, respiratory 18, blood pressure 161/87, SPO2 97% on room air. Blood workup showed hemoglobin 16.7, hematocrit 39.3, MCV 94.3, platelet count 151, sodium 139, potassium 3.8, chloride 101, anion gap 10, BUN 12, creatinine 0.7, glucose 187, calcium 9.7, total bilirubin 0.5, AST 23, ALT 36, alkaline phosphatase 74, troponin I 0.01, albumin 2.9, lipase 121, serum alcohol less than 10, urinalysis showed mild fat droplet. Assessment and plan Syncope under evaluation possible vasovagal * We will observe the patient to telemetry floor * We will do serial troponins and EKG * We will obtain cardiology consult * Orthostatic vitals High hematocrit * The counseled the patient to avoid smoking and keep hydrated * Will give him IV normal saline 1 L. Type 2 diabetes * NovoLog according to the sliding scale * Fingerstick 3 times daily/at bedtime CODE STATUS-full code Diet -consistent carbohydrate 2 DVT prophylaxis-ALPS/heparin
[2017-10-07 19:34] VITALS: BP 158/80
[2017-10-07 22:19] VITALS: BP 160/86
[2017-10-08] VITALS (8 sets, daily range): BP systolic 152–182; BP diastolic 70–104
--- NOTE | 2017-10-08 07:09 | PN-Observation ---
Ben ALSTON,Justina 10/08/17 0709: Observation Note Observation Note _ I have personally examined ARTEM RILEY. him disposition is uncertain at this time. Before a determination can be made, he requires continued observation for the following reasons [syncope]. Assessment/Plan Medical Assessment: 57-year-old male with past medical history of HTN, DM on Metformin, obesity, PVD S/P aortofemoral bypass, recurrent sinusitis, sinus cyst presents to the ED the for evaluation of syncope As per the patient he was in his usual state of health until last night when he was with his friends and was drinking and he was walking to do something from the fridge when he suddenly blacked out. The patient doesn't remember the incidents but he denies any palpitation, chest pain, nausea, vomiting, weakness or numbness before or after the episode. He also denies urinary or fecal incontinence or biting his tongue Problem list: Syncope (posttussive) Type 2 diabetes Alcohol use Plan: Observe on telemetry floor Cardiology consult appreciated Vitals every shift Serial troponin and EKG to rule out ACS I's and O's Orthostatic vital signs were negative DC normal saline Hold Metformin Insulin sliding scale Fingerstick glucose CIWA monitoring for alcohol withdrawal Patient is full code Consistent carbohydrate diet DVT prophylaxis with Alps and subcutaneous heparin patient is stable to be discharged today Problem List: 1. Syncope Qualifiers Syncope type: unspecified Qualified Code: R55 - Syncope and collapse Subjective Follow-up For: post tussive syncope Subjective: pt was seen and examined at bed side , has no C/O except for mild left knee stiffness which is due to the fall, denies any dizziness , chest pain or SOB Review of Systems Constitutional: Reports: see HPI. Objective Last 24 Hrs of Vital Signs/I&O Vital Signs Date Time Temp Pulse Resp B/P B/P Pulse O2 O2 Flow FiO2 Mean Ox Delivery Rate 10/08 1319 158/90 10/08 1206 70 170/98 10/08 0922 83 160/90 10/08 0806 170/100 10/08 0800 83 170/90 10/08 0730 152/70 10/08 0711 98.3 90 20 182/104 93 Room Air 10/08 0600 98.3 90 20 182/104 10/08 0518 95 182/104 10/08 0000 Nasal 2.0L Cannula 10/08 0000 98.4 84 20 160/86 10/07 2219 98.4 84 20 160/86 95 10/07 2020 92 Room Air 10/07 1934 97.8 82 16 158/80 92 10/07 1835 97.5 82 19 171/90 95 Room Air Intake & Output 10/08 1600 10/08 0800 10/08 0000 Intake Total 945 400 Output Total 350 Balance 595 400 Intake, IV 545 150 Intake, Oral 400 250 Number 0 Bowel Movements Output, Urine 350 Patient 225 lb Weight Physical Exam General Appearance: Alert, Oriented X3, Cooperative, No Acute Distress HEENT: Atraumatic, PERRLA, EOMI, Mucous Membr. moist/pink Neck: Supple, No JVD Lungs: Clear to Auscultation Abdomen: Normal Bowel Sounds, Soft, No Tenderness Neurological: Normal Speech, Strength at 5/5 X4 Ext, Normal Tone, Sensation Intact Extremities: mild right knee swelling , no redness or hotness, ROM intact Vascular: Normal Pulses Jeremy Moreau MD 10/08/17 1600: Attending MD Review Statement Attending Statement Attending MD Statement: examined this patient, discuss w/resident/PA/HOT PUNCH PRESS OPERATOR, agreed w/resident/PA/HOT PUNCH PRESS OPERATOR, reviewed EMR data (avail), discussed w/nursing, amended to note Attending Assessment/Plan: The patient was seen and discussed with house staff. Agree with plan of care as noted. OK to discharge to home today. OP follow-up of left knee contusion.
--- NOTE | 2017-10-08 08:56 | Cons- Cardiology ---
General Information and HPI Consulting Request Date of Consult: 10/08/17 Requested By: Jeremy Moreau MD Reason for Consult: Syncope presyncope Source of Information: patient, old records Exam Limitations: no limitations History of Present Illness: The patient is a 57 year old M who presented with a patient stated chief complaint of [syncope]. Source of Information: patient, old records Exam Limitations: no limitations History of Present Illness: 57-year-old male with past medical history of HTN, DM on Metformin, obesity, PVD S/P aortofemoral bypass, recurrent sinusitis, sinus cyst presents to the ED the for evaluation of syncope As per the patient he was in his usual state of health until last night when he was with his friends and was drinking and he was walking to do something from the fridge when he suddenly blacked out. The patient doesn't remember the incidents but he denies any palpitation, chest pain, nausea, vomiting, weakness or numbness before or after the episode. He also denies urinary or fecal incontinence or biting his tongue. The syncope was witnessed and his friends didn't notice any seizure while he was unconscious. It lasted a few seconds after which the patient regained his consciousness and was not confused. Patient reports hurting his left knee and ankle when he fell down however he denies any head injury. Patient currently reports pain in his left knee and ankle in addition to the chronic pain he has due to peripheral vascular disease. The patient denies any history of similar episodes, he only reports frequent headache due to sinusitis and cyst for which she is going to get surgery on Patient was recently evaluated by a manager embalmer funeral director at [facility], he had an echo on 07/26 which showed ejection fraction [id number] He also had nuclear stress test which showed inferior wall motion abnormality which was nonreversible. Patient lives home and is independent in his daily activities, he smoked one pack of cigarettes daily for 10 years, he also drinks 4 beers and 2 shots daily his last drink was yesterday Denies recreational drug use The above information was obtained by the admitting resident. Patient admits to coughing coughing incessantly and then he blacked out and found himself on the floor. He apparently called the EMT. EMT found him to be okay and he refused to go to the emergency room. The next day his left knee after the fall was swollen and he came to the emergency room. After revealed to them that he passed out the previous day they decided to admit him. 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 He has no chest pain or unusual shortness of breath on exertion. There's been no previous history of syncope. He continues to smoke one pack of cigarettes a day and consumes alcohol in moderate to excess amounts. He has a history of diabetes hypertension is a cigarette smoker but he recently in June 2017, the patient had an echocardiogram at [facility] was left radical ejection fraction 55-60% and no significant valvular abdomen allergies. He had a nuclear stress test at [facility] that showed a fixed inferior wall abnormality consistent with infarct and the left leg ejection fraction of 46% with he also had vascular workup which showed patent arteries except in the lower extremity. He has a history of CAD having had open surgery in 2003 which was preceded by stent placement. Allergies/Medications Allergies: Coded Allergies: morphine (Severe, HIVES 03/14/16) Home Med List: Albuterol Sulfate (Ventolin Hfa) 90 MCG HFA.AER.AD 2 PUF INH Q4-6 PRN PRN WHEEZING Albuterol Sulfate 1.25 MG/3 ML VIAL.NEB 1 Vial INH/HUSSAIN Q4-6 PRN WHEEZING Atorvastatin Calcium 10 MG TABLET 1 TAB PO DAILY CHOLESTROL (Reported) Azelastine HCl 137 MCG (0.1 %) SPRAY.PUMP 2 SPRAY NASB BID NASAL CONGESTION ( Reported) Lisinopril 20 MG TABLET 1 TAB PO DAILY BP (Reported) Metformin HCl 500 MG TABLET 1 TAB PO BID DM (Reported) Mometasone Furoate (Nasonex) 50 MCG SPRAY.PUMP 2 SPRAY NASB DAILY NASAL CONGESTION Current Medications: Current Medications Sig/Gerard Start time Last Medication Dose Route Stop Time Status Admin Acetaminophen 500 MG Q6P PRN 10/07 1999 AC PO Acetaminophen 650 MG Q4P PRN 10/07 1945 AC 10/07 PO 2014 Acetaminophen 0 .STK-MED ONE 10/07 1256 DC PO Acetaminophen 650 MG ONCE ONE 10/07 1230 DC 10/07 PO 10/07 1231 1253 Albuterol Sulfate 2 PUF Q4-6 PRN PRN 10/07 1830 AC INH Albuterol Sulfate 3 ML Q4H PRN 10/07 1830 AC INH Atorvastatin Calcium 10 MG DAILY 10/07 1826 AC 10/07 PO 1905 Enoxaparin Sodium 40 MG DAILY 10/08 1000 AC SC Hydromorphone HCl 2 MG ONCE ONE 10/07 1445 DC 10/07 IM 10/07 1446 1442 Hydromorphone HCl 0 .STK-MED ONE 10/07 1445 DC .ROUTE Insulin Aspart 0 TIDAC 10/08 0800 AC 10/08 SC 0811 Lisinopril 20 MG DAILY 10/08 1000 AC 10/08 PO 0518 Nicotine 0 .STK-MED ONE 10/07 1719 DC TOP Nicotine 21 MG DAILY 10/07 1712 AC 10/07 TOP 1727 Sodium Chloride 2 SPRAY Q4P PRN 10/07 2300 AC DESTINEE Sodium Chloride 1,000 ML Q13H 10/07 1945 DC 10/07 IV 2015 Review of Systems Review of Systems Constitutional: Denies: no symptoms. EENTM: Denies: no symptoms. Cardiovascular: Reports: see HPI. Respiratory: Denies: no symptoms. GI: Denies: no symptoms. Genitourinary: Denies: no symptoms. Musculoskeletal: Denies: no symptoms. Skin: Denies: no symptoms. Neurological/Psychological: Denies: no symptoms. Hematologic/Endocrine: Denies: no symptoms. Immunologic/Allergic: Denies: no symptoms. 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 No significant valvular abnormalities. Exam & Diagnostic Data Vital Signs and I&O Vital Signs Date Time Temp Pulse Resp B/P B/P Pulse O2 O2 Flow FiO2 Mean Ox Delivery Rate 10/08 0806 170/100 10/08 0730 152/70 10/08 0711 98.3 90 20 182/104 93 Room Air 10/08 0600 98.3 90 20 182/104 10/08 0518 95 182/104 10/08 0000 Nasal 2.0L Cannula 10/08 0000 98.4 84 20 160/86 10/07 2219 98.4 84 20 160/86 95 10/07 2020 92 Room Air 10/07 1934 97.8 82 16 158/80 92 10/07 1835 97.5 82 19 171/90 95 Room Air 10/07 1448 98.4 86 18 175/86 95 Room Air 10/07 1324 97.7 87 18 168/84 95 Room Air 10/07 1123 96.6 98 18 161/87 97 Room Air Room Air Intake & Output 10/08 1600 10/08 0810/08 0000 10/07 1600 10/07 0800 10/07 0000 Intake Total 945 400 Output Total 350 Balance 595 400 Intake, IV 545 150 Intake, Oral 400 250 Number 0 Bowel Movements Output, Urine 350 Patient 225 lb 225 lb Weight Weight Reported by Patient Measurement Method Physical Exam: Gen. exam patient comfortable. Main complaint is left knee swollen from the fall. Head normocephalic atraumatic Eyes sclera anicteric conjunctiva showed no pallor extra muscle were normal Neck no jugular venous distention no thyroid masses no palpable nodes chest lungs were clear bilaterally Heart regular rhythm without murmurs. S2 was physiological split Abdomen soft no organomegaly bowel sounds normal. Extensive scar of surgery noted on the abdominal wall. Extremities no clubbing cyanosis or edema. Rectal pulse was strong likely depressed and slightly weak. Neurological exam no gross motor or sensory deficits. Labs/Duglas Results: Laboratory Tests 10/08 10/07 10/07 0610 1910 1315 Chemistry Sodium (137 - 145 mmol/L) 140 Potassium (3.5 - 5.1 mmol/L) 4.0 Chloride (98 - 107 mmol/L) 102 Carbon Dioxide (22 - 30 mmol/L) 26 Anion Gap (5 - 16) 12 BUN (9 - 20 mg/dL) 13 Creatinine (0.7 - 1.2 mg/dL) 0.7 Estimated GFR (>60 ml/min) > 60 BUN/Creatinine Ratio (7 - 25 %) 18.6 Troponin I (<0.11 ng/ml) < 0.01 Hematology CBC w Diff Pending WBC Pending RBC Pending Hgb Pending Hct Pending MCV Pending MCH Pending MCHC Pending RDW Pending Plt Count Pending MPV Pending Urines Urine Color (YEL,AMB,STR) YEL Urine Clarity (CLEAR) CLEAR Urine pH (5.0 - 8.0) 6.5 Ur Specific [place] (1.001 - 1.035) 1.020 Urine Protein (NEG,<30 MG/DL) 30 H Urine Ketones (NEG) NEG Urine Nitrite (NEG) NEG Urine Bilirubin (NEG) NEG Urine Urobilinogen (0.1 - 1.0 EU/dl) 1.0 Ur Leukocyte Esterase (NEG) NEG Ur Microscopic SEDIMENT EXAMINED Urine RBC (0 - 5 /HPF) RARE Urine WBC (0 - 2 /HPF) RARE Ur Epithelial Cells (NONE,FEW) RARE Urine Bacteria (NEG/NONE) RARE H Micro UA Comment MORE INFO: H Urine Hemoglobin (NEG) NEG Urine Glucose (N MG/DL) NEG 10/07 1215 Chemistry Sodium (137 - 145 mmol/L) 139 Potassium (3.5 - 5.1 mmol/L) 3.8 Chloride (98 - 107 mmol/L) 101 Carbon Dioxide (22 - 30 mmol/L) 29 Anion Gap (5 - 16) 10 BUN (9 - 20 mg/dL) 12 Creatinine (0.7 - 1.2 mg/dL) 0.7 Estimated GFR (>60 ml/min) > 60 BUN/Creatinine Ratio (7 - 25 %) 17.1 Glucose (65 - 99 mg/dL) 187 H Calcium (8.4 - 10.2 mg/dL) 9.7 Total Bilirubin (0.2 - 1.3 mg/dL) 0.5 AST (17 - 59 U/L) 23 ALT (21 - 72 U/L) 36 Alkaline Phosphatase (< 127 U/L) 74 Troponin I (<0.11 ng/ml) 0.01 Total Protein (6.3 - 8.2 g/dL) 6.5 Albumin (3.5 - 5.0 g/dL) 3.9 Globulin (1.9 - 4.2 gm/dL) 2.6 Albumin/Globulin Ratio (1.1 - 2.2 %) 1.5 Lipase (23 - 300 U/L) 121 Hematology CBC w Diff NO MAN DIFF REQ WBC (4.8 - 10.8 /CUMM) 9.1 RBC (4.70 - 6.10 /CUMM) 5.23 Hgb (14.0 - 18.0 G/DL) 16.7 Hct (42 - 52 %) 49.3 MCV (80.0 - 94.0 FL) 94.3 H MCH (27.0 - 31.0 PG) 32.0 H MCHC (33.0 - 37.0 G/DL) 34.0 RDW (11.5 - 14.5 %) 13.4 Plt Count (130 - 400 /CUMM) 151 MPV (7.4 - 10.4 FL) 8.6 Gran % (42.2 - 75.2 %) 71.7 Lymphocytes % (20.5 - 51.1 %) 15.7 L Monocytes % (1.7 - 9.3 %) 7.1 Eosinophils % (0 - 5 %) 5.0 Basophils % (0.0 - 2.0 %) 0.5 Absolute Granulocytes (1.4 - 6.5 /CUMM) 6.5 Absolute Lymphocytes (1.2 - 3.4 /CUMM) 1.4 Absolute Monocytes (0.10 - 0.60 /CUMM) 0.6 Absolute Eosinophils (0.0 - 0.7 /CUMM) 0.5 Absolute Basophils (0.0 - 0.2 /CUMM) 0 Toxicology Serum Alcohol (<10 MG/DL) < 10.0 Diagnostic Data EKG Results Sinus rhythm with small inferior Q waves CXR Results No evidence for acute diseas Assessment/Plan Assessment/Plan In summary this 57-year-old gentleman with admitted with the following problems #1. Syncope which appears to be post tussive. This is highly suggestive of vasovagal. They may have been some superimposed alcohol influence. His left ventricular systolic function has been borderline normal and he could be a prior inferior infarct although silent. This was detected by nuclear scan. There was no reversible ischemia in 2017. #2. Hypertension, probably exacerbated by alcohol intake #3. Diabetes #4. History of cigarette smoking next #5. Left knee injury. Secondary to fall I believe it is fair to observe him on telemetry. His story sounds vasovagal., Counseling on alcohol and cigarette intake. The patient does not require any new cardiac testing at the moment unless his troponins turn to be elevated. He can follow-up with his primary medical doctor as an outpatient. Consult Acknowledgment - Thank you for your consult request.
[2017-10-08 09:17] LABS: ABSOLUTE BASOPHIL COUNT 0 /CUMM (0.0-0.2); ABSOLUTE EOSINOPHIL COUNT 0.4 /CUMM (0.0-0.7); ABSOLUTE GRANULOCYTE CT 4.9 /CUMM (1.4-6.5); ABSOLUTE LYMPH COUNT 1.2 /CUMM (1.2-3.4); ABSOLUTE MONOCYTE COUNT 0.5 /CUMM (0.10-0.60); BASOPHIL % 0.5 % (0.0-2.0); EOSINOPHIL % 5.5 % (0-5); GRANULOCYTE % 69.3 % (42.2-75.2); HEMATOCRIT 47.3 % (42-52); MEAN CORPUSCULAR HGB 31.9 PG (27.0-31.0); MEAN CORPUSCULAR HGB CONC 33.4 G/DL (33.0-37.0); MEAN CORPUSCULAR VOLUME 95.4 FL (80.0-94.0); MEAN PLATELET VOLUME 9.7 FL (7.4-10.4); PLATELET COUNT 144 /CUMM (130-400); RBC DISTRIBUTION WIDTH 14.2 % (11.5-14.5)
[2017-10-08 09:19] LABS: RED BLOOD CELL CT 4.95 /CUMM (4.70-6.10)
--- NOTE | 2017-10-08 11:10 | Patient Discharge Instructions ---
Discharge Instructions General Discharge Information You were seen/treated for: post-tussive syncope Special Instructions: 1-please follow up[ with your PCP in 1 week of discharge 2- Please take meds as advised Diet Continue normal diet: Yes Activity Full Activity/No Limits: Yes Acute Coronary Syndrome Inclusion Criteria At DC or during hospital stay patient has or had the following: ACS DIAGNOSIS No Discharge Core Measures Meds if any: Prescribed or Continued at Discharge Meds if any: NOT Prescribed or Continued at Discharge Congestive Heart Failure Inclusion Criteria At DC or during hospital stay patient has or had the following: CHF DIAGNOSIS No Discharge Core Measures Meds if any: Prescribed or Continued at Discharge Meds if any: NOT Prescribed or Continued at Discharge Cerebrovascular accident Inclusion Criteria At DC or during hospital stay patient has or had the following: CVA/TIA Diagnosis No Discharge Core Measures Meds if any: Prescribed or Continued at Discharge Meds if any: NOT Prescribed or Continued at Discharge Venous thromboembolism Inclusion Criteria VTE Diagnosis No VTE Type NONE VTE Confirmed by (Test) NONE Discharge Core Measures - Per Current guidelines, there needs to be overlap - treatment for the first 5 days of Warfarin therapy. - If discharged on Warfarin prior to 5 days of - overlap therapy, the patient will need to be - assessed for post discharge needs including - *Post discharge parental anticoagulation - *Warfarin and/or parental anticoagulation education - *Follow up date to check INR post discharge At least 5 days overlap therapy as Inpatient No Meds if any: Prescribed or Continued at Discharge Note: Overlap Therapy is Warfarin and Anticoagulant Meds if any: NOT Prescribed or Continued at Discharge
[2017-10-08] MEDS ORDERED: CYCLOBENZAPRINE5 M2 PO (11:34)
== END 2017-10-08 13:45 ==
LOC: ERH 11:00 → ERHI 16:03 → 1NO 16:03 → ENRESERV 17:34 → ENTRNSPT 18:56 → EDTRNSPTSTS 19:10 → EDTRNSPT 19:10 → 1NO 19:27 → CMPTRNSPT 20:07 → ENPENDDIS 10-08 11:34 → 1NO 10-08 13:45
PROVIDERS: Physician Assistant Medical
DX: R55 Syncope and collapse (principal); E11.8 Type 2 diabetes mellitus with unspecified complications; Z79.84 Long term (current) use of oral hypoglycemic drugs; I10 Essential (primary) hypertension; E66.9 Obesity, unspecified; I73.9 Peripheral vascular disease, unspecified; Z72.89 Other problems related to lifestyle; F17.200 Nicotine dependence, unspecified, uncomplicated
CPT/HCPCS: 6020; 36592; 71045; 73562-LT; 73610-LT; 74176; 81001; 82436; 93005; 93010; 96372; G0378; G0480; J1650; J3490